=== PATIENT | female | born 1965 | race Caucasian/White ===

== ENCOUNTER 2017-06-01 14:22 | Emergency (ER) | payer BC ==
[~2017-06-01] VITALS: Ht 162.6 cm; Wt 104.2 kg
[~2017-06-01 14:22] MED LIST: COUMADIN5 MG PO; DICLOFENAC SODI75 MG PO; LOVENOX100 MG/1 M SC; VIORELE 28 DAY1 EACH PO
[2017-06-01 17:30] VITALS: BP 136/70
== END 2017-06-01 17:30 | disposition home or self-care (01) ==
LOC: EME 14:22
DX: M79.604 Pain in right leg (principal); Z86.718 Personal history of other venous thrombosis and embolism
CPT/HCPCS: 93971; 99281; 99284